=== PATIENT | male | born 1950 | race Caucasian/White ===

== ENCOUNTER 2018-02-01 18:05 | Inpatient (IN) | payer OTHER ==
[~2018-02-01] VITALS: Ht 170.2 cm; Wt 76.7 kg
[2018-02-01] MEDS ORDERED: ELIQUIS2.5 MG PO (18:27)
[2018-02-01 19:00] LABS: ABSOLUTE EOSINOPHILS 0.1 thou/uL (0.0-0.7); ABSOLUTE LYMPHOCYTES 1.4 thou/uL (0.8-5.3); ABSOLUTE MONOCYTES 0.7 thou/uL (0.0-1.2); BASOPHILS 0.4 %; EOSINOPHILS 0.7 %; HEMATOCRIT 39.9 % (42.0-52.0); HEMOGLOBIN 13.9 gm/dL (14.0-18.0); LYMPHOCYTES 12.7 %; MCH 32.2 pg (26.0-34.0); MCHC 34.8 g/dL (28.0-37.0); MCV 92.5 fL (80.0-100.0); MONOCYTES 6.1 %; MPV 7.5 fl. (7.2-11.1); NUCLEATED RBCS 0 /100WBC; PLATELET COUNT* 161 thou/uL (150-400); POLYS 80.1 %; RBC 4.31 mil/uL (4.50-6.00); RDW-CV 12.9 % (10.5-14.5); WBC 11.2 thou/uL (4.0-11.0)
[2018-02-01 19:08] LABS: CALCIUM 8.7 mg/dL (8.5-10.1); CREATININE 1.4 mg/dL (0.6-1.3); POTASSIUM 3.6 mmol/L (3.5-5.1)
[2018-02-01 19:12] LABS: ALBUMIN 3.8 g/dL (3.4-5.0); TOTAL BILIRUBIN 0.5 mg/dL (<0.1-1.0); TOTAL PROTEIN 6.9 g/dL (6.4-8.2)
[2018-02-01 19:20] LABS: URINE BILIRUBIN NEGATIVE (Negative); URINE BLOOD 3+ (Negative); URINE CLARITY CLOUDY; URINE COLOR DARK YELLOW; URINE GLUCOSE-RANDOM NEGATIVE (Negative); URINE KETONES NEGATIVE (Negative); URINE LEUKOCYTES-REFLEX NEGATIVE (Negative); URINE NITRITE-REFLEX NEGATIVE (Negative); URINE PROTEIN 2+ (Negative); URINE SPECIFIC GRAVITY 1.025 (1.005-1.030); URINE UROBILINOGEN 0.2 E.U./dl (0.2-1.0)
[2018-02-01 19:31] LABS: BACTERIA-REFLEX None Seen /HPF (None Seen); CASTS None Seen /LPF (None Seen); CRYSTALS None Seen /LPF (None Seen); MUCUS 4-6 Moderate strn/LPF (None Seen); SQUAMOUS 0-3 Few /LPF (0-3); URINE RBC >20 Many /HPF (0-2); URINE WBC-REFLEX None Seen /HPF (0-5)
[2018-02-01 23:33] VITALS: BP 137/72
[2018-02-01 23:35] VITALS: BP 161/88
--- NOTE | 2018-02-02 05:44 | NUR ---
REPORT RECIEVED FROM EUSEBIO IN ED. PT ARRIVED ON UNIT, PT ORIENTED TO ROOM, CALL LIGHT SHOWN FALL AGREEMENT WENT OVER AND SIGNED. PT STATED UNDERSTANDING. ASSESSMENT DOCUMENTED. IV PATENT, FLUIDS INFUSING. PT HAD NO REPORTS OF PAIN OR NAUSEA. URINE STRAINED. WILL CONTINUE WITH PLAN OF CARE.
[2018-02-02 07:35] VITALS: BP 148/79
[2018-02-02] MEDS ORDERED: LOSARTAN POTAS100 MG PO (09:05)
[2018-02-02] MEDS ORDERED: LIPITOR 20 MG T20 M1 PO (09:05)
[2018-02-02] MEDS ORDERED: BACID CAPLET1 EACH PO (09:06)
[2018-02-02] MEDS ORDERED: FLOMAX0.4 MG PO (09:08)
[2018-02-02] MEDS ORDERED: PRILOSEC 20 MG20 MG PO (09:08)
[2018-02-02] MEDS ORDERED: HYDROCODONE-AP1 EAC6 PO (10:43)
[2018-02-02] MEDS ORDERED: ZOFRAN ODT4 MG PO (10:43)
[2018-02-02 13:49] VITALS: BP 148/79
--- NOTE | 2018-02-02 14:22 | NUR ---
STUDENT CHARTING REVIEWED BY Danny PATRICIO RN MSN.
--- NOTE | 2018-02-02 14:28 | NUR ---
DISCHARGE TEACHING GIVEN, PATIENT CONCERNED WITH PREVIOUS CONSTIPATION WITH OPIOID USE. SUGGESTED INCREASED WATER INTAKE, BULK FIBER, STOOL SOFTNER TO DECREASE RISK. PHARMACY VERIFIED, PATIENT CONCERNS ADDRESSED. PATIENT GIVEN URINE FILTER FOR HOME USE.
--- NOTE | 2018-02-02 14:35 | NUR ---
PATIENT A&OX4, ROOM AIR, IV LEFT HAND FLUIDS INFUSSING. UP AD CHARLES, STEADY GAIT. NO C/O PAIN/N/V. STRAINING URINE, NO STONE PRODUCED. UNABLE TO DO LITHOTRIPSY TODAY, ELEQUIS NEEDS TO BE HELD FOR 5 DAYS FIRST. BRIA F/U VISIT FOR UROLOGIST. IV DISCONTINUED, CATHETER FULLY INTACT. REVIEWED DISCHARGE PAPERWORK WITH PATIENT AND FAMILY AT BEDSIDE. SCRIPTS GIVEN AND CALLED IN. PATIENT LEFT UNIT AT 1415 AMBULATORY, WITH ALL BELONGINGS. COAT LEFT BEHIND, CALLED FAMILY CAME AND RETRIEVED COAT. NO OTHER CONCERNS AT THIS TIME. NO FURTHER QUESTIONS, VERBALIZES UNDERSTANDING. APPROPRIATE AND COOPORATIVE WITH CARE.
== END 2018-02-02 14:15 | disposition home or self-care (01) | DRG 694 ==
LOC: M.ERS 18:05 → M.3W 20:54 → M.TBA-ER 20:54 → M.3W 23:34
PROVIDERS: Physician Assistant; ADMIT Internal Medicine
DX: N20.2 Calculus of kidney with calculus of ureter (principal); I12.9 Hypertensive chronic kidney disease with stage 1 through stage 4 chronic kidney disease, or unspecified chronic kidney disease; N18.3 Chronic kidney disease, stage 3 (moderate); E78.00 Pure hypercholesterolemia, unspecified; E78.5 Hyperlipidemia, unspecified; N40.0 Benign prostatic hyperplasia without lower urinary tract symptoms; K76.9 Liver disease, unspecified; K21.9 Gastro-esophageal reflux disease without esophagitis; Z79.899 Other long term (current) drug therapy; Z86.718 Personal history of other venous thrombosis and embolism; Z88.0 Allergy status to penicillin; Z79.01 Long term (current) use of anticoagulants; Z84.1 Family history of disorders of kidney and ureter; Z72.89 Other problems related to lifestyle; Z87.442 Personal history of urinary calculi

== ENCOUNTER 2018-07-25 08:27 | Inpatient (IN) | payer OTHER ==
[~2018-07-25] VITALS: Ht 170.2 cm; Wt 79.4 kg
[~2018-07-25 08:27] MED LIST: BACID CAPLET1 EACH PO; ELIQUIS2.5 MG PO; FLOMAX0.4 MG PO; HYDROCODONE-AP1 EAC6 PO; LIPITOR 20 MG T20 M1 PO; LOSARTAN POTAS100 MG PO; PRILOSEC 20 MG20 MG PO; ZOFRAN ODT4 MG PO
[2018-07-25 08:33] VITALS: BP 155/95
[2018-07-25] MEDS ORDERED: IBUPROFEN 400400 M2 PO (08:43)
[2018-07-25] MEDS ORDERED: LIPITOR 20 MG T20 M1 PO (08:44)
[2018-07-25] MEDS ORDERED: ASPIR 8181 MG PO (08:44)
[2018-07-25] MEDS ORDERED: GLUCOSAMINE-MS1 EAC4 PO (08:46)
[2018-07-25 08:58] LABS: ABSOLUTE BASOPHILS 0.1 thou/uL (0.0-0.2); ABSOLUTE EOSINOPHILS 0.1 thou/uL (0.0-0.7); ABSOLUTE LYMPHOCYTES 2.8 thou/uL (0.8-5.3); ABSOLUTE MONOCYTES 0.7 thou/uL (0.0-1.2); ABSOLUTE NEUTROPHILS 4.2 thou/uL (1.6-8.1); BASOPHILS 0.7 %; EOSINOPHILS 1.2 %; HEMATOCRIT 43.7 % (42.0-52.0); HEMOGLOBIN 14.9 gm/dL (14.0-18.0); LYMPHOCYTES 36.2 %; MCH 32.8 pg (26.0-34.0); MCHC 34.2 g/dL (28.0-37.0); MCV 95.9 fL (80.0-100.0); MONOCYTES 8.4 %; MPV 7.4 fl. (7.2-11.1); NUCLEATED RBCS 0 /100WBC; PLATELET COUNT* 170 thou/uL (150-400); POLYS 53.5 %; RBC 4.56 mil/uL (4.50-6.00); RDW-CV 12.3 % (10.5-14.5); WBC 7.8 thou/uL (4.0-11.0)
[2018-07-25 09:03] LABS: ANION GAP 11 mmol/L (7-16); BUN 31 mg/dL (7-18); CALCIUM 8.2 mg/dL (8.5-10.1); CHLORIDE 106 mmol/L (98-107); CO2 24 mmol/L (21-32); CREATININE 1.2 mg/dL (0.6-1.3); GLUCOSE 108 mg/dL (70-99); POTASSIUM 3.6 mmol/L (3.5-5.1); SODIUM 141 mmol/L (136-145)
[2018-07-25 09:09] LABS: ALBUMIN 3.6 g/dL (3.4-5.0); ALKALINE PHOSPHATASE 72 U/L (46-116); SGOT 15 U/L (15-37); SGPT 24 U/L (30-65); TOTAL BILIRUBIN 0.5 mg/dL (<0.1-1.0); TOTAL PROTEIN 6.9 g/dL (6.4-8.2); TROPONIN-I LEVEL <0.06 ng/mL (<0.06)
[2018-07-25 10:04] LABS: INR 1.1; PROTIME 10.8 Seconds (9.20-11.50)
[2018-07-25 10:51] VITALS: BP 119/68
[2018-07-25 11:00] VITALS: BP 150/81
[2018-07-25] MEDS ORDERED: CENTRUM SILVER1 EAC2 PO (11:39)
[2018-07-25] MEDS ORDERED: LOSARTAN POTAS100 MG PO (11:39)
[2018-07-25 16:00] VITALS: BP 102/58
--- NOTE | 2018-07-25 17:06 | EKG ---
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
[2018-07-25 20:00] VITALS: BP 108/76
[2018-07-26] VITALS (18 sets, daily range): BP systolic 77–121; BP diastolic 43–86
[2018-07-26 05:03] LABS: HEMOGLOBIN 14.4 gm/dL (14.0-18.0); MCH 32.9 pg (26.0-34.0); MCHC 34.3 g/dL (28.0-37.0); MCV 95.9 fL (80.0-100.0); MPV 7.9 fl. (7.2-11.1); RBC 4.38 mil/uL (4.50-6.00); RDW-CV 12.7 % (10.5-14.5); WBC 6.4 thou/uL (4.0-11.0)
[2018-07-26 05:22] LABS: ALBUMIN 3.1 g/dL (3.4-5.0); CALCIUM 8.4 mg/dL (8.5-10.1); CREATININE 1.2 mg/dL (0.6-1.3); MAGNESIUM 2.3 mg/dL (1.8-2.4); POTASSIUM 3.8 mmol/L (3.5-5.1); TOTAL BILIRUBIN 0.6 mg/dL (<0.1-1.0); TOTAL PROTEIN 5.8 g/dL (6.4-8.2)
--- NOTE | 2018-07-26 16:02 | TEE ---
[place] [address] TRANSESOPHAGEAL ECHOCARDIOGRAM Name: CHUY ALVAREZ Room: [address] IN [facility]#: [id number] Admission: 07/25/18 Attend Phys: Ramiro Kulkarni Discharge: Date of : 46 Date of Service: 07/26/18 1602 Report #: [id number] THIS REPORT FOR: //name// APPROVED REPORT Study performed: 07/26/2018 13:39:01 EXAM: Transesophageal Echocardiogram Patient Location: In-Patient Room #: [facility] Status: routine BSA: 1.91 HR: 101 bpm BP: 113/60 mmHg Rhythm: Atrial Fibrillation Other Information Study Quality: Good Indications Atrial Fibrillation Echo Enhancing Agent Indication: Rule out Shunt Agent(s) / Amount(s) Used: Agitated Saline 20 cc Comments: 2 bubble studies Procedure After obtaining informed consent, patient underwent transesophageal echo in the Dental Receptionist Holding. Type of Sedation : Conscious Sedation Sedation was administered by [place]. Sedation start time: 1340 Case end Time: 1400 Sedation was achieved intravenously with: Versed (6) Fentanyl (25) Transesophageal probe was inserted and advanced into esophagus without difficulty by Tylor Archibald MD, FACC. Echo enhancement indication: R/O Septal defect. Echo enhancement agent administered: Agitated Saline The MIKE was performed without complications. Synchronized Cardioversion attempted: Successful Synchronized Cardioversion acheived with 200 Joules after 1 attempt(s). Rhythm following Synchronized Cardioversion: Normal Sinus Rhythm Throughout the procedure, the blood pressure, pulse oximetry, cardiac [address] [address] TRANSESOPHAGEAL ECHOCARDIOGRAM Name: CHUY ALVAREZ Room: [address]#: [id number] Admission: 07/25/18 Attend Phys: Ramiro Kulkarni Discharge: Date of : 46 Date of Service: 07/26/18 1602 Report #: [id number] rhythm, and rate were monitored. The patient tolerated the procedure without adverse effects. Recovery from conscious sedation was uneventful and vital signs were stable. Left Ventricle The left ventricle is normal size. There is normal LV segmental wall motion. There is normal left ventricular wall thickness. Left ventricular systolic function is normal. The left ventricular ejection fraction is within the normal range. LVEF is 60-65%. Right Ventricle The right ventricle is normal size. The right ventricular systolic function is normal. Atria No thrombus is visualized in the left atrium or appendage. Left atrium is mildly dilated. Interatrial septum is intact without evidence of ASD or PFO. The right atrium size is normal. Aortic Valve The aortic valve is normal in structure. No aortic regurgitation is present. There is no aortic valvular stenosis. Mitral Valve The mitral valve is normal in structure. Mild mitral regurgitation. No evidence of mitral valve stenosis. Tricuspid Valve The tricuspid valve is normal in structure. Trace tricuspid regurgitation. Pulmonic Valve The pulmonary valve is normal in structure. There is no pulmonic valvular regurgitation. Great Vessels The aortic root is normal in size. Pericardium There is no pericardial effusion. <Conclusion> LVEF is 60-65%. No thrombus is visualized in the left atrium or appendage. Left atrium [place] [address] TRANSESOPHAGEAL ECHOCARDIOGRAM Name: CHUY ALVAREZ Room: [address] IN .R.#: [id number] Admission: 07/25/18 Attend Phys: Ramiro Kulkarni Discharge: Date of : 46 Date of Service: 07/26/181601 Report #: [id number] Interatrial septum is intact without evidence of ASD or PFO. Mild mitral regurgitation. successful cardioversion of atrial fibrillation to nsr <ELECTRONICALLY SIGNED> By: Tylor Archibald MD, FACC 07/26/181601 01 01 Tylor Archibald MD, FACC /INF
[2018-07-27] VITALS: BP 141/76
[2018-07-27 04:00] VITALS: BP 123/70
[2018-07-27 08:00] VITALS: BP 158/84
[2018-07-27 09:37] VITALS: BP 158/84
[2018-07-27] MEDS ORDERED: ELIQUIS5 MG PO ×2 (10:36→11:17)
[2018-07-27] MEDS ORDERED: SORINE 80 MG TA80 M1 PO (11:17)
[2018-07-27 11:28] VITALS: BP 158/84
--- NOTE | 2018-07-27 13:04 | EKG ---
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
--- NOTE | 2018-08-04 08:48 | CON ---
[address] [address] CONSULTATION Name: JAYJAY ALVAREZ Room: [address] IN .R.#: [id number] Admission: 07/25/18 Attend Phys: Ramiro Mena, Discharge: 07/27/18 Date of : 46 Report #: [id number] THIS REPORT FOR: //name// CC: Bayron Shetty [facility] physician/PCP Ramiro Mena INDICATION: New onset atrial fibrillation. HISTORY OF PRESENT ILLNESS: The patient is a very pleasant 68-year-old gentleman who has noted episodes of dizziness, lasting a few seconds on and off for the past several weeks. This morning, he had recurrence of this symptom that was persistent and did not resolve. He also noted exertional weakness in his legs and some slight chest pressure. The patient presented to the hospital, was found to be in atrial fibrillation with a rapid ventricular response rate. He is presently stable. His heart rate remained somewhat elevated. He is without other complaint at this time. Blood pressure is stable. PAST MEDICAL HISTORY: 1. Hypertension. 2. Dyslipidemia. 3. Benign prostatic hypertrophy. 4. GERD. 5. Lymphadenopathy. 6. History of melanoma, status post resection. 7. History of deep venous thrombosis with completed course of anticoagulant. 8. Appendectomy as a child. 9. Right rotator cuff repair. 10. Bilateral inguinal lymph node biopsy. ALLERGIES: PENICILLIN. CURRENT MEDICATIONS: Aspirin 81 mg daily, atorvastatin 20 mg daily, glucosamine 1 capsule daily, ibuprofen p.r.n., losartan 100 mg daily, multivitamin 1 tablet daily, omeprazole 20 mg daily, Flomax 0.4 mg at bedtime. FAMILY HISTORY: Noncontributory. SOCIAL HISTORY: The patient denies use of tobacco. He drinks alcohol in moderation. He is . Family is in attendance. REVIEW OF SYSTEMS: A 14-point review of systems. GENERAL: He denies convulsions, seizures or focal paralysis. In general, there is no unexplained weight loss or fever. He does have night sweats. RESPIRATORY: He denies cough, shortness of breath or underlying lung disease. CARDIOVASCULAR: As outlined above. In addition, [place] [address] CONSULTATION Name: JAYJAY ALVAREZ Room: [address]#: [id number] Admission: 07/25/18 Attend Phys: Ramiro Mena, Discharge: 07/27/18 Date of : 46 Report #: [id number] paroxysmal nocturnal dyspnea. ENDOCRINE: He denies diabetes or thyroid disease. GASTROINTESTINAL: No vomiting, hematemesis, melena, hematochezia or jaundice. GENITOURINARY: No dysuria or hematuria. He does have urinary hesitancy. HEMATOLOGIC AND LYMPHATIC: He has history of melanoma, status post resection. He has a history of DVT status post completion of the course of anticoagulant. He denies anemia or bleeding disorder. ALLERGY AND IMMUNOLOGIC: HE HAS PENICILLIN ALLERGY as outlined above. PSYCHIATRIC: No depression or anxiety. MUSCULOSKELETAL: He has arthritis without connective tissue diseases. SKIN: No recent rashes, hives or chronic skin conditions. EYES: He does wear glasses. He has no acute loss in vision. EARS, NOSE, MOUTH, THROAT: He denies decreased hearing, epistaxis or dentures. PHYSICAL EXAMINATION: VITAL SIGNS: Blood pressure 150/81, pulse in the 90s to 120s and irregular. GENERAL: This is a pleasant gentleman who is in no distress. Mood and affect appropriate. HEENT: Extraocular muscles intact. Mucous membranes moist. NECK: Shows no jugular venous distention. There are no carotid bruits. CHEST: Reveals clear lung root. CARDIAC: Reveals an irregularly irregular rhythm without gallop or murmur. ABDOMEN: Reveals normal bowel sounds. The abdomen is soft, nontender. EXTREMITIES: Shows no edema. Peripheral pulses palpable. SKIN: Warm and dry. LABORATORY DATA: Evaluated. Electrolytes within normal limits. BUN 31, creatinine 1.2, serum glucose 108. LFTs within normal limits. Troponin less than 0.06. White blood cell count 7.8, hemoglobin 14.9, platelet count 170,000. Chest x-ray shows no acute abnormality. IMPRESSION AND RECOMMENDATIONS: 1. New onset atrial fibrillation with rapid ventricular response. We will start Eliquis 5 mg twice daily for anticoagulation. The patient's BRADEN score is 2 for hypertension and age. We will start sotalol 80 mg twice daily. Plan further evaluation with echocardiogram and stress test in a.m. 2. Hypertension, adequately controlled presently. 3. Hyperlipidemia. Continue current statin agent. <ELECTRONICALLY SIGNED> By: Jayjay Duke MD, FACC 08/04/18 0848 1438 01Micderick Duke MD, FACC /nt
== END 2018-07-27 11:45 | disposition home or self-care (01) | DRG 309 ==
LOC: M.ERS 08:27 → M.TBA-ER 10:07 → M.2W 10:07
PROVIDERS: Personal Emergency Response Attendant; ADMIT Family Medicine
DX: I48.91 Unspecified atrial fibrillation (principal); E44.1 Mild protein-calorie malnutrition; I16.0 Hypertensive urgency; I10 Essential (primary) hypertension; E78.5 Hyperlipidemia, unspecified; K21.9 Gastro-esophageal reflux disease without esophagitis; N40.0 Benign prostatic hyperplasia without lower urinary tract symptoms; F10.920 Alcohol use, unspecified with intoxication, uncomplicated; Z85.820 Personal history of malignant melanoma of skin; Z90.49 Acquired absence of other specified parts of digestive tract; Z86.718 Personal history of other venous thrombosis and embolism; Z79.82 Long term (current) use of aspirin; Z79.899 Other long term (current) drug therapy; Z88.0 Allergy status to penicillin; Z82.49 Family history of ischemic heart disease and other diseases of the circulatory system

== ENCOUNTER 2018-12-10 17:59 | Emergency (ER) | payer OTHER ==
[~2018-12-10] VITALS: Ht 170.2 cm; Wt 79.4 kg
[~2018-12-10 17:59] MED LIST changes: +ASPIR 8181 MG PO; +CENTRUM SILVER1 EAC2 PO; +ELIQUIS5 MG PO; +GLUCOSAMINE-MS1 EAC4 PO; +IBUPROFEN 400400 M2 PO; +SORINE 80 MG TA80 M1 PO
[2018-12-10 18:46] LABS: ABSOLUTE EOSINOPHILS 0.2 thou/uL (0.0-0.7); ABSOLUTE MONOCYTES 0.7 thou/uL (0.0-1.2); ABSOLUTE NEUTROPHILS 3.1 thou/uL (1.6-8.1); BASOPHILS 0.7 %; EOSINOPHILS 2.8 %; HEMOGLOBIN 13.9 gm/dL (14.0-18.0); MCH 32.9 pg (26.0-34.0); MCHC 34.8 g/dL (28.0-37.0); MCV 94.6 fL (80.0-100.0); MONOCYTES 9.5 %; MPV 7.3 fl. (7.2-11.1); NUCLEATED RBCS 0 /100WBC; PLATELET COUNT* 166 thou/uL (150-400); RBC 4.22 mil/uL (4.50-6.00); RDW-CV 12.4 % (10.5-14.5)
[2018-12-10 18:51] LABS: ANION GAP 7 mmol/L (7-16); BUN 24 mg/dL (7-18); CALCIUM 8.7 mg/dL (8.5-10.1); CHLORIDE 102 mmol/L (98-107); CO2 29 mmol/L (21-32); CREATININE 1.3 mg/dL (0.6-1.3); GLUCOSE 100 mg/dL (70-99); POTASSIUM 3.6 mmol/L (3.5-5.1); SODIUM 138 mmol/L (136-145)
[2018-12-10 19:03] LABS: ALBUMIN 3.5 g/dL (3.4-5.0); ALKALINE PHOSPHATASE 80 U/L (46-116); NT-PRO BRAIN NAT PEPTIDE 114 pg/mL (<300); SGOT 18 U/L (15-37); SGPT 26 U/L (30-65); TOTAL BILIRUBIN 0.5 mg/dL (<0.1-1.0); TOTAL PROTEIN 6.5 g/dL (6.4-8.2); TROPONIN-I LEVEL <0.06 ng/mL (<0.06)
[2018-12-10 19:36] VITALS: BP 151/83
[2018-12-10 19:44] LABS: URINE BILIRUBIN NEGATIVE (Negative); URINE BLOOD NEGATIVE (Negative); URINE CLARITY CLEAR; URINE COLOR YELLOW; URINE GLUCOSE-RANDOM NEGATIVE (Negative); URINE KETONES NEGATIVE (Negative); URINE LEUKOCYTES-REFLEX NEGATIVE (Negative); URINE NITRITE-REFLEX NEGATIVE (Negative); URINE PROTEIN NEGATIVE (Negative); URINE SPECIFIC GRAVITY 1.015 (1.005-1.030); URINE UROBILINOGEN 0.2 E.U./dl (0.2-1.0)
--- NOTE | 2018-12-11 12:45 | EKG ---
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: Lena PERDUE RN : 1950 Requested By: Arpan Conner Order Number: [id number] MD: Tylor Archibald Measurements Intervals [place] Rate: 53 P: 40 NE: 174 QRS: 24 QRSD: 86 T: 18 QT: 420 QTc: 395 Interpretive Statements Sinus rhythm Probable left atrial enlargement Compared to ECG 07/27/2018 09:00:01 No significant changes Electronically Signed On 12-11-2018 12:45:09 INFORMATION SECURITY OFFICER by Tylor Archibald [email or web address] <ELECTRONICALLY SIGNED> By: Tylor Archibald MD, [facility] 12/11/18 1245 1808 07 Tylor Archibald MD, FACC /EPI
== END 2018-12-10 19:36 | disposition home or self-care (01) ==
LOC: M.ERS 17:59
PROVIDERS: Emergency Medicine Emergency Medical Services
DX: I10 Essential (primary) hypertension (principal); E78.5 Hyperlipidemia, unspecified; K21.9 Gastro-esophageal reflux disease without esophagitis; N40.0 Benign prostatic hyperplasia without lower urinary tract symptoms; I48.91 Unspecified atrial fibrillation; Z90.49 Acquired absence of other specified parts of digestive tract; Z88.0 Allergy status to penicillin